=== PATIENT | male | born 1975 | race Asian ===

== ENCOUNTER 2021-06-01 04:34 | Day surgery (SDC) | payer BC ==
[2021-05-28 19:17] VITALS: BMI 20.7
[2021-06-01 19:23] VITALS: BP 138/85; PULSE 78; TEMP 98.6
== END 2021-06-01 19:23 | disposition home or self-care (01) ==
LOC: JASU-SURG 04:34
PROVIDERS: ATTEND Urology
PROC: 0TF3XZZ Fragmentation in Right Kidney Pelvis, External Approach (ICD-10-PCS; principal; 2021-06-01 16:30)
DX: N20.0 Calculus of kidney (principal)